=== PATIENT | female | born 1935 | race Caucasian/White ===

== ENCOUNTER 2016-04-26 10:51 | Emergency (ER) | payer MEDICARE ==
--- NOTE | 2016-04-26 12:08 | UC ---
Upper Extremity HPI - HPI Summary HPI Summary: FOOSH onto both hands this morning from a standing position. Has pain and bruising in L radial side wrist, abrasions on R palm. Pt washed wounds with soap and water and then took a shower. - History of Current Complaint Chief Complaint: UCUpperExtremity Stated Complaint: LEFT WRIST COMPLAINT Time Seen by Provider: 04/26/16 11:59 Hx Obtained From: Patient ?: No Onset/Duration: Sudden Onset Severity Initially: Mild Severity Currently: Moderate Location Of Pain: Is Discrete @ Character: Dull, Aching Aggravating Factor(s): Movement Alleviating Factor(s): Ice, Rest Associated Signs And Symptoms: Positive: Swelling, Bruising Related History: Dominant Hand Right - Allergies/Home Medications Allergies/Adverse Reactions: Allergies Allergy/AdvReac Type Severity Reaction Status Date / Time Penicillins Allergy Intermediate Swelling Verified 04/26/16 11:46 Home Medications: Home Medications Ibuprofen TAB* [Advil TAB*] 200 mg PO ONCE PRN 04/26/16 [History Confirmed 04/26] PMH/Surg Hx/FS Hx/Imm Hx Previously Healthy: Yes - Surgical History Surgical History: Yes Surgery Procedure, Year, and Place: hysterectomy 2016 - Family History Known Family History: Positive: Hypertension - Social History Occupation: Retired Alcohol Use: Occasionally Substance Use Type: None Substance Use Comment - Amount & Last Used: 2-3 cups coffee daily Smoking Status (MU): Former Smoker Length of Time of Smoking/Using Tobacco: 8 yrs Have You Smoked in the Last Year: No When Did the Patient Quit Smoking/Using Tobacco: 1964 - Immunization History Most Recent Tetanus Shot: 1989 Review of Systems Constitutional: Negative Skin: Bruising Eyes: Negative ENT: Negative Respiratory: Negative Cardiovascular: Negative Gastrointestinal: Negative Genitourinary: Negative Motor: Negative Neurovascular: Negative Musculoskeletal: Arthralgia Neurological: Negative Psychological: Negative All Other Systems Reviewed And Are Negative: Yes Physical Exam Triage Information Reviewed: Yes Appearance: Well-Appearing, No Pain Distress, Well-Nourished Vital Signs: Initial Vital Signs Temp 98.2 F 04/26/16 11:34 Pulse 71 04/26/16 11:34 Resp 16 04/26/16 11:34 BP 176/56 04/26/16 11:34 Pulse Ox 100 04/26/16 11:34 Vital Signs Reviewed: Yes Eye Exam: Normal Eyes: Positive: Conjunctiva Clear ENT Exam: Normal ENT: Positive: Normal ENT inspection, Hearing grossly normal, Pharynx normal, TMs normal Dental Exam: Normal Neck exam: Normal Neck: Positive: Supple, Nontender, No Lymphadenopathy Respiratory Exam: Normal Respiratory: Positive: Chest non-tender, Lungs clear, Normal breath sounds, No respiratory distress, No accessory muscle use Cardiovascular Exam: Normal Cardiovascular: Positive: RRR, No Murmur Musculoskeletal: Positive: ROM Intact, 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 Discharge - Discharge Plan Condition: Stable Disposition: HOME Patient Education Materials: Wrist Fracture in Adults (ED) Referrals: Essie Guillen MD [Medical Doctor] - Additional Instructions: You can call [phone] to arrange for follow-up in [place]. You need not see Dr. Wetzel -- any provider they feel is appropriate for your injury would be fine. Keep the splint on until you see the provider.
[2016-04-26] MEDS ORDERED: Tetan/Diph/Pertus SYR(Tdap)* 0.5 ML SYR(BOOSTRIX) use SYR IM ONE (12:10)
--- NOTE | 2016-04-26 12:24 | RAD ---
INDICATION: Left wrist injury. TECHNIQUE: 3 views of the left wrist were obtained. FINDINGS: The bones appear osteopenic. There is a transverse slightly impacted fracture of the distal radius. The fracture fragment are otherwise nondisplaced and nonangulated. No other fractures are seen. 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 IMPRESSION: TRANSVERSE SLIGHTLY IMPACTED FRACTURE OF THE DISTAL RADIUS.
[2016-04-26 12:33] VITALS: BP 176/56
== END 2016-04-26 12:51 | disposition home or self-care (01) ==
LOC: UCCORT 10:51
DX: S52.502A Unspecified fracture of the lower end of left radius, initial encounter for closed fracture (principal); S60.511A Abrasion of right hand, initial encounter; W19.XXXA Unspecified fall, initial encounter; Y93.9 Activity, unspecified; Y92.9 Unspecified place or not applicable; Z23 Encounter for immunization; Z88.0 Allergy status to penicillin; Z87.891 Personal history of nicotine dependence
CPT/HCPCS: 90471; 90715; 99212; G0463